=== PATIENT | male | born 1945 | race Caucasian/White ===

== ENCOUNTER → 2016-11-13 | Outpatient (CLI) | payer MEDICARE, OTHER | LOC: COL.VAS 08:46 | DX: I82.812 Embolism and thrombosis of superficial veins of left lower extremity (principal); M79.89 Other specified soft tissue disorders ==

== ENCOUNTER 2017-06-26 11:50 | Observation (INO) | payer MEDICARE, OTHER ==
[2017-06-26] VITALS (9 sets, daily range): BP systolic 99–159; BP diastolic 66–86; PULSE 56–65; TEMP 97.7–98.2
[~2017-06-26] VITALS: Ht 170.2 cm; Wt 97.4 kg
[2017-06-26] MEDS ORDERED: ZOCOR 40MG40 MG PO (12:39)
[2017-06-26] MEDS ORDERED: ASPIRIN E.C. 8181 MG PO (12:39)
[2017-06-26] MEDS ORDERED: TENORMIN 5050 MG/TAB PO (12:39)
[2017-06-27 01:19] VITALS: BP 144/83; PULSE 73; TEMP 98
[2017-06-27 05:54] VITALS: BP 151/82; PULSE 80; TEMP 98.2
[2017-06-27 10:15] VITALS: BP 149/75; PULSE 71; TEMP 98.2
[2017-06-27 15:00] VITALS: BP 143/76; PULSE 68; TEMP 98.5
[2017-06-27 18:01] VITALS: BP 143/70; PULSE 66; TEMP 98.2
[2017-06-27 21:57] VITALS: BP 151/65; PULSE 56; TEMP 98.2
[2017-06-28 06:03] VITALS: BP 124/61; PULSE 70; TEMP 98.4
[2017-06-28 09:34] VITALS: BP 131/70; PULSE 74; TEMP 98.3
[2017-06-28 13:46] VITALS: BP 128/68; PULSE 71; TEMP 98.6
== END 2017-06-28 17:35 | disposition home or self-care (01) ==
LOC: SDCO 11:50 → SURG 17:15 → SDCO 06-27 13:59 → SURG 06-27 14:00
DX: N40.1 Benign prostatic hyperplasia with lower urinary tract symptoms (principal); N13.8 Other obstructive and reflux uropathy; R35.0 Frequency of micturition; R35.1 Nocturia; R39.11 Hesitancy of micturition; R39.15 Urgency of urination; R39.12 Poor urinary stream; E78.5 Hyperlipidemia, unspecified; I10 Essential (primary) hypertension; Z79.82 Long term (current) use of aspirin; F17.290 Nicotine dependence, other tobacco product, uncomplicated; Z85.828 Personal history of other malignant neoplasm of skin; K21.9 Gastro-esophageal reflux disease without esophagitis; Z95.820 Peripheral vascular angioplasty status with implants and grafts; Z86.718 Personal history of other venous thrombosis and embolism
CPT/HCPCS: OP; G0378; J0690; J2250; J2704; J3010; J7030; J7120

== ENCOUNTER → 2017-12-23 | Outpatient (CLI) | payer MEDICARE, OTHER ==
[~2017-12-23] MED LIST: ASPIRIN E.C. 8181 MG PO; TENORMIN 5050 MG/TAB PO; ZOCOR 40MG40 MG PO
== END ==
LOC: COL.RAD 08:11
DX: Z13.6 Encounter for screening for cardiovascular disorders (principal); Z87.891 Personal history of nicotine dependence

== ENCOUNTER → 2021-02-27 | Outpatient (CLI) | payer MEDICARE ==
[~2021-02-27] VITALS: Ht 170.2 cm; Wt 104.1 kg
[2021-02-27 12:30] VITALS: BP 174/91; PULSE 58; TEMP 98.1
[2021-02-27 14:00] VITALS: BP 159/76; PULSE 62
== END ==
LOC: COL.RAD 12:06
DX: M48.061 Spinal stenosis, lumbar region without neurogenic claudication (principal)
CPT/HCPCS: J3301

== ENCOUNTER → 2021-03-27 | Outpatient (CLI) | payer MEDICARE ==
[~2021-03-27] VITALS: Ht 170.2 cm; Wt 103.5 kg
[2021-03-27 12:38] VITALS: BP 181/87; PULSE 60; TEMP 97.8
[2021-03-27 13:27] VITALS: BP 158/66; PULSE 61
== END ==
LOC: COL.RAD 12:18
DX: M48.062 Spinal stenosis, lumbar region with neurogenic claudication (principal)
CPT/HCPCS: J3301

== ENCOUNTER 2022-09-26 11:15 | Outpatient (RCR) | payer MEDICARE, OTHER | END 2022-09-27 | disposition home or self-care (01) | LOC: MKS.ESL.PT | DX: M48.062 Spinal stenosis, lumbar region with neurogenic claudication (principal) ==

== ENCOUNTER 2022-10-22 11:15 | Outpatient (RCR) | payer MEDICARE, OTHER | END 2022-10-27 | disposition home or self-care (01) | LOC: MKS.ESL.PT | DX: R29.898 Other symptoms and signs involving the musculoskeletal system (principal) ==

== ENCOUNTER → 2023-03-13 | Outpatient (CLI) | payer MEDICARE, OTHER | LOC: MHCPAIN 07:57 | DX: M48.061 Spinal stenosis, lumbar region without neurogenic claudication (principal); M54.16 Radiculopathy, lumbar region | CPT/HCPCS: J1100; Q9967 ==

== ENCOUNTER → 2023-03-27 | Outpatient (CLI) | payer MEDICARE, OTHER | LOC: MHCPAIN 10:55 | DX: M48.062 Spinal stenosis, lumbar region with neurogenic claudication (principal); E88.2 Lipomatosis, not elsewhere classified; M51.36 Other intervertebral disc degeneration, lumbar region; M47.816 Spondylosis without myelopathy or radiculopathy, lumbar region; G20 Parkinson's disease | CPT/HCPCS: G0463 ==